=== PATIENT | female | born 1945 | race Caucasian/White ===

== ENCOUNTER → 2016-07-22 | Outpatient (CLI) | payer MEDICARE ==
[~2016-07-22] MED LIST: ASPIRIN81 M1 PO; CRESTOR10 MG PO; DETROL LA4 MG PO; JANUMET PO; OYSTER SHELL W PO; VICODIN 5/500 505 MG PO; VITAMIN D50000 I1 PO
[2016-07-22 10:56] LABS: BUN 12 mg/dl (7-24); CHOLESTEROL 133 mg/dL (<200); EST GLOM FILT AFRICAN AMERICAN > 60 ml/min; GLUCOSE 137 mg/dL (65-99); HDL CHOLESTEROL 59 mg/dl (40-60); LDL CHOLESTEROL 58 mg/dL (9-159); SGOT/AST 24 IU/L (3-35); SGPT/ALT 30 U/L (12-78); TRIGLYCERIDES 81 mg/dl (<150); VLDL CHOLESTEROL 16 mg/dL (6-40)
[2016-07-22 11:17] LABS: HEMOGLOBIN A1c 6.6 % (4.8-5.6)
== END | disposition home or self-care (01) ==
LOC: LAB 10:08
PROVIDERS: Internal Medicine Endocrinology, Diabetes & Metabolism
DX: E78.5 Hyperlipidemia, unspecified (principal); E55.9 Vitamin D deficiency, unspecified; E11.65 Type 2 diabetes mellitus with hyperglycemia

== ENCOUNTER → 2016-12-03 | Outpatient (CLI) | payer MEDICARE ==
[2016-12-03 10:50] LABS: BASO # 0.1 10*3/uL (0.0-0.1); BASO % 0.8 % (0.0-1.0); EOS # 0.1 10*3/uL (0.0-0.4); EOS % 2.4 % (1.0-4.0); HEMATOCRIT 41.8 % (37.0-47.0); HEMOGLOBIN 13.2 g/dl (12.0-16.0); LYMPH # 1.6 10*3/uL (1.3-4.4); LYMPH % 26.4 % (27.0-41.0); MEAN CELL VOLUME 90.9 fl (81.0-99.0); MEAN CORPUSCULAR HGB 28.7 pg (27.0-31.0); MEAN CORPUSCULAR HGB CONC 31.6 g/dl (33.0-37.0); MEAN PLATELET VOLUME 12.9 fl (9.6-12.3); MONO # 0.4 10*3/uL (0.1-1.0); MONO % 6.4 % (3.0-9.0); NEUT # 3.8 10*3/uL (2.3-7.9); NEUT % 63.8 % (47.0-73.0); PLATELET COUNT AUTOMATED 244 10*3/uL (130-400); RED CELL DISTRI WIDTH 13.9 % (0-14.5); WHITE BLOOD COUNT 5.9 10*3/uL (4.8-10.8)
[2016-12-03 11:02] LABS: ALKALINE PHOSPHATASE 88 U/L (45-117); BUN 12 mg/dl (7-24); CHLORIDE 103 mmol/L (98-107); CREATININE 0.69 mg/dL (0.55-1.02); POTASSIUM 4.3 mmol/L (3.5-5.1); SGOT/AST 34 IU/L (3-35); SGPT/ALT 42 U/L (12-78); SODIUM 140 mmol/L (136-145); TOTAL PROTEIN 7.8 gm/dL (6.4-8.2)
[2016-12-03 11:10] LABS: THYROID STIM HORMONE (HS) 1.7 uIU/ml (0.358-4.75)
== END | disposition home or self-care (01) ==
LOC: LAB 10:07
PROVIDERS: Internal Medicine; Internal Medicine Endocrinology, Diabetes & Metabolism
DX: E11.65 Type 2 diabetes mellitus with hyperglycemia (principal); E78.5 Hyperlipidemia, unspecified; E55.9 Vitamin D deficiency, unspecified; M85.88 Other specified disorders of bone density and structure, other site

== ENCOUNTER → 2017-04-01 | Outpatient (CLI) | payer MEDICARE ==
[2017-04-01 10:49] LABS: BUN 15 mg/dl (7-24); CHOLESTEROL 144 mg/dL (<200); CREATININE 0.69 mg/dL (0.55-1.02); SGOT/AST 17 IU/L (3-35); SGPT/ALT 28 U/L (12-78); TRIGLYCERIDES 67 mg/dl (<150); VLDL CHOLESTEROL 13 mg/dL (6-40)
[2017-04-01 10:58] LABS: HDL CHOLESTEROL 67 mg/dl (40-60); LDL CHOLESTEROL 64 mg/dL (9-159)
== END | disposition home or self-care (01) ==
LOC: LAB 09:57
PROVIDERS: Internal Medicine Endocrinology, Diabetes & Metabolism
DX: E11.65 Type 2 diabetes mellitus with hyperglycemia (principal); E78.5 Hyperlipidemia, unspecified; E55.9 Vitamin D deficiency, unspecified; E53.9 Vitamin B deficiency, unspecified

== ENCOUNTER → 2017-06-10 | Outpatient (CLI) | payer MEDICARE ==
[2017-06-10 09:11] LABS: BASO # 0.1 10*3/uL (0.0-0.1); EOS # 0.2 10*3/uL (0.0-0.4); EOS % 2.8 % (1.0-4.0); HEMOGLOBIN 12.9 g/dl (12.0-16.0); LYMPH # 2.3 10*3/uL (1.3-4.4); LYMPH % 31.9 % (27.0-41.0); MEAN CELL VOLUME 90.7 fl (81.0-99.0); MEAN CORPUSCULAR HGB 28.5 pg (27.0-31.0); MEAN CORPUSCULAR HGB CONC 31.5 g/dl (33.0-37.0); MEAN PLATELET VOLUME 12.4 fl (9.6-12.3); MONO # 0.5 10*3/uL (0.1-1.0); MONO % 7.6 % (3.0-9.0); NEUT % 56.6 % (47.0-73.0); PLATELET COUNT AUTOMATED 248 10*3/uL (130-400); RED BLOOD COUNT 4.52 10*6/uL (4.10-5.10); RED CELL DISTRI WIDTH 13.4 % (0-14.5); WHITE BLOOD COUNT 7.1 10*3/uL (4.8-10.8)
[2017-06-10 09:33] LABS: ALBUMIN 3.8 gm/dl (3.1-4.5); ALKALINE PHOSPHATASE 84 U/L (45-117); BILIRUBIN, DIRECT 0.1 mg/dL (0.0-0.2); BUN 12 mg/dl (7-24); CHLORIDE 104 mmol/L (98-107); CREATININE 0.74 mg/dL (0.55-1.02); SGOT/AST 18 IU/L (3-35); SGPT/ALT 31 U/L (12-78); SODIUM 140 mmol/L (136-145); TOTAL PROTEIN 7.2 gm/dL (6.4-8.2)
== END | disposition home or self-care (01) ==
LOC: LAB 08:23
PROVIDERS: Podiatrist Foot & Ankle Surgery
DX: B35.1 Tinea unguium (principal)

== ENCOUNTER → 2017-06-30 | Outpatient (CLI) | payer MEDICARE ==
[2017-06-30 11:31] LABS: BUN 11 mg/dl (7-24); CHOLESTEROL 153 mg/dL (<200); CREATININE 0.64 mg/dL (0.55-1.02); HDL CHOLESTEROL 60 mg/dl (40-60); LDL CHOLESTEROL 71 mg/dL (9-159); SGOT/AST 22 IU/L (3-35); SGPT/ALT 32 U/L (12-78); TRIGLYCERIDES 108 mg/dl (<150); VLDL CHOLESTEROL 22 mg/dL (6-40)
[2017-06-30 12:41] LABS: VITAMIN D, 25-HYDROXY 27.4 ng/mL (30-100)
== END | disposition home or self-care (01) ==
LOC: LAB 10:32
PROVIDERS: Internal Medicine Endocrinology, Diabetes & Metabolism
DX: E11.65 Type 2 diabetes mellitus with hyperglycemia (principal); E78.5 Hyperlipidemia, unspecified; E55.9 Vitamin D deficiency, unspecified; E53.9 Vitamin B deficiency, unspecified

== ENCOUNTER → 2017-07-24 | Outpatient (CLI) | payer MEDICARE ==
[2017-07-24 10:20] LABS: BASO # 0.1 10*3/uL (0.0-0.1); BASO % 0.9 % (0.0-1.0); EOS # 0.1 10*3/uL (0.0-0.4); EOS % 1.7 % (1.0-4.0); HEMATOCRIT 41.8 % (37.0-47.0); HEMOGLOBIN 12.9 g/dl (12.0-16.0); LYMPH # 1.3 10*3/uL (1.3-4.4); LYMPH % 18.9 % (27.0-41.0); MEAN CELL VOLUME 90.3 fl (81.0-99.0); MEAN CORPUSCULAR HGB 27.9 pg (27.0-31.0); MEAN CORPUSCULAR HGB CONC 30.9 g/dl (33.0-37.0); MEAN PLATELET VOLUME 12.6 fl (9.6-12.3); MONO # 0.4 10*3/uL (0.1-1.0); MONO % 5.9 % (3.0-9.0); NEUT % 72.3 % (47.0-73.0); PLATELET COUNT AUTOMATED 256 10*3/uL (130-400); RED BLOOD COUNT 4.63 10*6/uL (4.10-5.10); RED CELL DISTRI WIDTH 13.6 % (0-14.5)
[2017-07-24 10:42] LABS: ALKALINE PHOSPHATASE 82 U/L (45-117); BILIRUBIN, DIRECT < 0.1 mg/dL (0.0-0.2); SGOT/AST 23 IU/L (3-35); SGPT/ALT 28 U/L (12-78); TOTAL PROTEIN 7.3 gm/dL (6.4-8.2)
== END | disposition home or self-care (01) ==
LOC: LAB 09:59
PROVIDERS: Podiatrist Foot & Ankle Surgery
DX: B35.1 Tinea unguium (principal)

== ENCOUNTER → 2017-10-13 | Outpatient (CLI) | payer MEDICARE ==
[2017-10-13 11:05] LABS: BUN 14 mg/dl (7-24); CHOLESTEROL 157 mg/dL (<200); CREATININE 0.76 mg/dL (0.55-1.02); HDL CHOLESTEROL 56 mg/dl (40-60); LDL CHOLESTEROL 80 mg/dL (9-159); SGOT/AST 22 IU/L (3-35); SGPT/ALT 28 U/L (12-78); TRIGLYCERIDES 104 mg/dl (<150); VLDL CHOLESTEROL 21 mg/dL (6-40)
[2017-10-13 11:49] LABS: VITAMIN D, 25-HYDROXY 29.2 ng/mL (30-100)
== END | disposition home or self-care (01) ==
LOC: LAB 09:52
PROVIDERS: Internal Medicine Endocrinology, Diabetes & Metabolism
DX: E11.65 Type 2 diabetes mellitus with hyperglycemia (principal); E78.5 Hyperlipidemia, unspecified; E55.9 Vitamin D deficiency, unspecified; E53.9 Vitamin B deficiency, unspecified

== ENCOUNTER → 2018-01-15 | Outpatient (CLI) | payer MEDICARE ==
[2018-01-15 10:30] LABS: BUN 12 mg/dl (7-24); CHOLESTEROL 136 mg/dL (<200); CREATININE 0.75 mg/dL (0.55-1.02); HDL CHOLESTEROL 56 mg/dl (40-60); LDL CHOLESTEROL 59 mg/dL (9-159); SGOT/AST 59 IU/L (3-35); SGPT/ALT 70 U/L (12-78); TRIGLYCERIDES 107 mg/dl (<150); VLDL CHOLESTEROL 21 mg/dL (6-40)
[2018-01-15 11:01] LABS: VITAMIN D, 25-HYDROXY 62.1 ng/mL (30-100)
== END | disposition home or self-care (01) ==
LOC: LAB 09:35
PROVIDERS: Internal Medicine Endocrinology, Diabetes & Metabolism
DX: E11.65 Type 2 diabetes mellitus with hyperglycemia (principal); E78.5 Hyperlipidemia, unspecified; E55.9 Vitamin D deficiency, unspecified; E53.9 Vitamin B deficiency, unspecified

== ENCOUNTER → 2018-04-15 | Outpatient (CLI) | payer MEDICARE ==
[2018-04-15 11:17] LABS: BILIRUBIN NEGATIVE (NEGATIVE); BLOOD NEGATIVE (NEGATIVE); CLARITY CLEAR (CLEAR); COLOR YELLOW (YELLOW); GLUCOSE NEGATIVE (NEGATIVE); KETONE NEGATIVE (NEGATIVE); LEUKO ESTERASE NEGATIVE (NEGATIVE); NITRITE NEGATIVE (NEGATIVE); PH 5.5 (5.0-9.0); UROBILINOGEN 0.2 E.U./dl (0.2-1.0)
[2018-04-15 11:47] LABS: BUN 12 mg/dl (7-24); CHOLESTEROL 150 mg/dL (<200); CREATININE 0.68 mg/dL (0.55-1.02); SGOT/AST 15 IU/L (3-35); SGPT/ALT 25 U/L (12-78); TRIGLYCERIDES 116 mg/dl (<150)
[2018-04-15 11:55] LABS: HDL CHOLESTEROL 55 mg/dl (40-60)
[2018-04-16 04:11] LABS: LDL CHOLESTEROL (DIRECT) <4 mg/dL (0-99)
== END | disposition home or self-care (01) ==
LOC: LAB 10:33
PROVIDERS: Internal Medicine Endocrinology, Diabetes & Metabolism
DX: E11.65 Type 2 diabetes mellitus with hyperglycemia (principal); E55.9 Vitamin D deficiency, unspecified; E78.5 Hyperlipidemia, unspecified; E53.9 Vitamin B deficiency, unspecified

== ENCOUNTER → 2018-08-03 | Outpatient (CLI) | payer MEDICARE ==
[2018-08-03 11:36] LABS: BUN 15 mg/dl (7-24); CHOLESTEROL 144 mg/dL (<200); CREATININE 0.72 mg/dL (0.55-1.02); HDL CHOLESTEROL 53 mg/dl (40-60); SGOT/AST 15 IU/L (3-35); SGPT/ALT 21 U/L (12-78); TRIGLYCERIDES 106 mg/dl (<150)
[2018-08-03 12:05] LABS: VITAMIN D, 25-HYDROXY 39.1 ng/mL (30-100)
[2018-08-04 09:05] LABS: LDL CHOLESTEROL (DIRECT) 82 mg/dL (0-99)
== END | disposition home or self-care (01) ==
LOC: LAB 10:42
PROVIDERS: Internal Medicine Endocrinology, Diabetes & Metabolism
DX: E11.65 Type 2 diabetes mellitus with hyperglycemia (principal); E78.5 Hyperlipidemia, unspecified; E55.9 Vitamin D deficiency, unspecified; E53.9 Vitamin B deficiency, unspecified

== ENCOUNTER → 2018-09-02 | Outpatient (CLI) | payer MEDICARE | END | disposition home or self-care (01) | LOC: RAD 13:23 → MAMMO 14:00 | DX: Z12.31 Encounter for screening mammogram for malignant neoplasm of breast (principal); M85.88 Other specified disorders of bone density and structure, other site; E11.9 Type 2 diabetes mellitus without complications; Z78.0 Asymptomatic menopausal state; Z90.710 Acquired absence of both cervix and uterus ==

== ENCOUNTER → 2018-12-07 | Outpatient (CLI) | payer MEDICARE ==
[2018-12-07 10:40] LABS: BUN 16 mg/dl (7-24); CHOLESTEROL 126 mg/dL (<200); CREATININE 0.72 mg/dL (0.55-1.02); HDL CHOLESTEROL 50 mg/dl (40-60); LDL CHOLESTEROL 55 mg/dL (9-159); SGOT/AST 14 IU/L (3-35); SGPT/ALT 25 U/L (12-78); TRIGLYCERIDES 104 mg/dl (<150); VLDL CHOLESTEROL 21 mg/dL (6-40)
== END | disposition home or self-care (01) ==
LOC: LAB 09:40
PROVIDERS: Internal Medicine Endocrinology, Diabetes & Metabolism
DX: E78.5 Hyperlipidemia, unspecified (principal); E11.65 Type 2 diabetes mellitus with hyperglycemia; E55.9 Vitamin D deficiency, unspecified; E53.9 Vitamin B deficiency, unspecified

== ENCOUNTER → 2019-02-17 | Outpatient (CLI) | payer MEDICARE | END | disposition home or self-care (01) | LOC: US 13:30 | DX: N28.1 Cyst of kidney, acquired (principal) ==

== ENCOUNTER → 2019-04-05 | Outpatient (CLI) | payer MEDICARE ==
[2019-04-05 11:44] LABS: BUN 14 mg/dl (7-24); CHOLESTEROL 148 mg/dL (<200); CREATININE 0.77 mg/dL (0.55-1.02); HDL CHOLESTEROL 58 mg/dl (40-60); LDL CHOLESTEROL 68 mg/dL (9-159); SGOT/AST 16 IU/L (3-35); SGPT/ALT 26 U/L (12-78); TRIGLYCERIDES 112 mg/dl (<150); VLDL CHOLESTEROL 22 mg/dL (6-40)
== END | disposition home or self-care (01) ==
LOC: LAB 10:24
PROVIDERS: Internal Medicine Endocrinology, Diabetes & Metabolism
DX: E11.65 Type 2 diabetes mellitus with hyperglycemia (principal); E78.5 Hyperlipidemia, unspecified; E55.9 Vitamin D deficiency, unspecified; E53.9 Vitamin B deficiency, unspecified; I10 Essential (primary) hypertension

== ENCOUNTER → 2019-08-08 | Outpatient (CLI) | payer MEDICARE | END | disposition home or self-care (01) | LOC: CARD 06-20 09:30 | DX: I05.9 Rheumatic mitral valve disease, unspecified (principal); I35.8 Other nonrheumatic aortic valve disorders; R73.03 Prediabetes ==

== ENCOUNTER → 2019-09-19 | Outpatient (CLI) | payer MEDICARE ==
[2019-09-19 09:58] LABS: BUN 14 mg/dl (7-24); CHOLESTEROL 147 mg/dL (<200); CREATININE 0.77 mg/dL (0.55-1.02); SGOT/AST 15 IU/L (3-35); SGPT/ALT 30 U/L (12-78)
[2019-09-19 09:59] LABS: HDL CHOLESTEROL 51 mg/dl (40-60); LDL CHOLESTEROL 71 mg/dL (9-159); TRIGLYCERIDES 123 mg/dl (<150); VLDL CHOLESTEROL 25 mg/dL (6-40)
== END | disposition home or self-care (01) ==
LOC: LAB 08:48
PROVIDERS: Internal Medicine Endocrinology, Diabetes & Metabolism
DX: E11.65 Type 2 diabetes mellitus with hyperglycemia (principal); E78.5 Hyperlipidemia, unspecified; E55.9 Vitamin D deficiency, unspecified; E53.9 Vitamin B deficiency, unspecified; I10 Essential (primary) hypertension

== ENCOUNTER → 2019-10-26 | Outpatient (CLI) | payer MEDICARE ==
[~2019-10-26] MED LIST changes: +GLIMEPIRIDE4 M1 PO; +GLUCOPHAGE1000 MG PO; +LIPITOR10 MG PO; +LISINOPRIL5 MG PO; +OSCAL/D,OYSTER250 MG PO; +OXYBUTYNIN PO; +TRULICITY1.5 MG/0.5 SC
--- NOTE | 2019-10-26 08:15 | NUR ---
INFORMED CONSENT OBTAINED FOR EXERCISE CARDIOLITE STRESS TEST WITH DR. DE LA VEGA. RESTING EKG NSR WITH A SUPINE HR OF 85 WITH BP OF 112/60 AND HR OF 86 WITH BP OF 116/66 IN STANDING POSITION. PT COMPLETED 6:30 OF A MARY PROTOCOL WITH COMPLETION OF 30 SECONDS OF STAGE III AT 3.4 MPH AND 14% GRADE. REACHED A PEAK HR OF 153 WHICH IS 103% OF PREDICTED MAX WITH A PEAK BP OF 136/70. STRESS TEST TERMINATED BECAUSE OF FATIGUE. IN STAGE III C/O CHEST "TIGHTNESS" THAT WAS A 5 ON PAIN SCALE. AT 1:00 RECOVERY CHEST DISCOMFORT DECREASED TO A 3 ON PAIN SCALE AND DECREASED TO A 1 AT 2:00 RECOVERY. CHEST DISCOMFORT RELIEVED AT 4:[address]IC [address] CHANGES. LAST RECOVERY HR OF 92 WITH BP OF 130/60. HAS A GOOD EXERCISE TOLERANCE. AWAITING SCANNING IN STABLE CONDITION.
== END | disposition home or self-care (01) ==
LOC: CARD 00:14
DX: R07.89 Other chest pain (principal)

== ENCOUNTER → 2019-12-23 | Outpatient (CLI) | payer MEDICARE ==
[2019-12-23 10:56] LABS: BUN 14 mg/dl (7-24); CHOLESTEROL 131 mg/dL (<200); CREATININE 0.79 mg/dL (0.55-1.02); HDL CHOLESTEROL 48 mg/dl (40-60); LDL CHOLESTEROL 54 mg/dL (9-159); SGOT/AST 14 IU/L (3-35); SGPT/ALT 24 U/L (12-78); TRIGLYCERIDES 144 mg/dl (<150); VLDL CHOLESTEROL 29 mg/dL (6-40)
[2019-12-23 11:50] LABS: VITAMIN D, 25-HYDROXY 41.3 ng/mL (30-100)
== END | disposition home or self-care (01) ==
LOC: LAB 09:46
PROVIDERS: Internal Medicine Endocrinology, Diabetes & Metabolism; ATTEND Pediatrics Neurodevelopmental Disabilities
DX: E11.65 Type 2 diabetes mellitus with hyperglycemia (principal); E78.5 Hyperlipidemia, unspecified; E55.9 Vitamin D deficiency, unspecified; I10 Essential (primary) hypertension; E53.9 Vitamin B deficiency, unspecified

== ENCOUNTER → 2020-04-06 | Outpatient (CLI) | payer MEDICARE ==
[2020-04-06 11:23] LABS: BUN 17 mg/dl (7-24); CHOLESTEROL 137 mg/dL (<200); CREATININE 0.75 mg/dL (0.55-1.02); HDL CHOLESTEROL 57 mg/dl (40-60); LDL CHOLESTEROL 62 mg/dL (9-159); SGOT/AST 19 IU/L (3-35); SGPT/ALT 27 U/L (12-78); TRIGLYCERIDES 91 mg/dl (<150); VLDL CHOLESTEROL 18 mg/dL (6-40)
== END | disposition home or self-care (01) ==
LOC: LAB 10:02
PROVIDERS: ATTEND Internal Medicine Endocrinology, Diabetes & Metabolism
DX: E11.65 Type 2 diabetes mellitus with hyperglycemia (principal); I10 Essential (primary) hypertension; E78.5 Hyperlipidemia, unspecified; E55.9 Vitamin D deficiency, unspecified; E53.9 Vitamin B deficiency, unspecified

== ENCOUNTER → 2020-07-10 | Outpatient (CLI) | payer MEDICARE ==
[2020-07-10 11:08] LABS: BUN 18 mg/dl (7-24); CHOLESTEROL 139 mg/dL (<200); CREATININE 0.76 mg/dL (0.55-1.02); HDL CHOLESTEROL 58 mg/dl (40-60); LDL CHOLESTEROL 60 mg/dL (9-159); SGOT/AST 20 IU/L (3-35); SGPT/ALT 38 U/L (12-78); TRIGLYCERIDES 107 mg/dl (<150); VLDL CHOLESTEROL 21 mg/dL (6-40)
[2020-07-10 11:42] LABS: VITAMIN D, 25-HYDROXY 30.7 ng/mL (30-100)
== END | disposition home or self-care (01) ==
LOC: LAB 10:17
PROVIDERS: ATTEND Internal Medicine Endocrinology, Diabetes & Metabolism
DX: E11.65 Type 2 diabetes mellitus with hyperglycemia (principal); E78.5 Hyperlipidemia, unspecified; I10 Essential (primary) hypertension; E55.9 Vitamin D deficiency, unspecified; E56.8 Deficiency of other vitamins

== ENCOUNTER → 2020-08-03 | Outpatient (CLI) | payer MEDICARE | END | disposition home or self-care (01) | LOC: RESCLI 00:37 | PROVIDERS: ATTEND Internal Medicine | DX: I10 Essential (primary) hypertension (principal); E11.9 Type 2 diabetes mellitus without complications; E55.9 Vitamin D deficiency, unspecified; E78.2 Mixed hyperlipidemia; M85.851 Other specified disorders of bone density and structure, right thigh; N39.41 Urge incontinence; Z79.4 Long term (current) use of insulin; Z79.82 Long term (current) use of aspirin; Z98.890 Other specified postprocedural states; Z88.8 Allergy status to other drugs, medicaments and biological substances ==

== ENCOUNTER → 2020-08-08 | Outpatient (CLI) | payer MEDICARE | END | disposition home or self-care (01) | LOC: CARD 09:15 | PROVIDERS: ATTEND Internal Medicine | DX: I51.7 Cardiomegaly (principal); I25.3 Aneurysm of heart ==

== ENCOUNTER → 2020-08-15 | Outpatient (CLI) | payer MEDICARE | END | disposition home or self-care (01) | LOC: RAD 08:44 → MAMMO 09:30 | PROVIDERS: ATTEND Internal Medicine | DX: Z12.31 Encounter for screening mammogram for malignant neoplasm of breast (principal); M85.89 Other specified disorders of bone density and structure, multiple sites; Z78.0 Asymptomatic menopausal state ==

== ENCOUNTER → 2020-10-24 | Outpatient (CLI) | payer MEDICARE ==
[2020-10-24 11:05] LABS: BUN 16 mg/dl (7-24); CHOLESTEROL 140 mg/dL (<200); CREATININE 0.67 mg/dL (0.55-1.02); LDL CHOLESTEROL 70 mg/dL (9-159); SGOT/AST 16 IU/L (3-35); SGPT/ALT 28 U/L (12-78); TRIGLYCERIDES 83 mg/dl (<150)
[2020-10-24 11:17] LABS: VITAMIN D, 25-HYDROXY 39.6 ng/mL (30-100)
== END | disposition home or self-care (01) ==
LOC: LAB 10:28
PROVIDERS: ATTEND Internal Medicine Endocrinology, Diabetes & Metabolism
DX: E11.65 Type 2 diabetes mellitus with hyperglycemia (principal); E78.5 Hyperlipidemia, unspecified; E55.9 Vitamin D deficiency, unspecified; I10 Essential (primary) hypertension; E53.8 Deficiency of other specified B group vitamins

== ENCOUNTER → 2020-11-21 | Outpatient (CLI) | payer MEDICARE | END | disposition home or self-care (01) | LOC: RESCLI 00:19 | PROVIDERS: ATTEND Internal Medicine Nephrology | DX: I10 Essential (primary) hypertension (principal); E11.9 Type 2 diabetes mellitus without complications; E55.9 Vitamin D deficiency, unspecified; E78.2 Mixed hyperlipidemia; M85.851 Other specified disorders of bone density and structure, right thigh; N39.41 Urge incontinence; Z79.82 Long term (current) use of aspirin; Z79.84 Long term (current) use of oral hypoglycemic drugs; Z79.899 Other long term (current) drug therapy; Z90.710 Acquired absence of both cervix and uterus ==

== ENCOUNTER → 2021-02-22 | Outpatient (CLI) | payer MEDICARE ==
[2021-02-22 10:18] LABS: BUN 18 mg/dl (7-24); CREATININE 0.73 mg/dL (0.55-1.02); SGOT/AST 15 IU/L (3-35); SGPT/ALT 22 U/L (12-78); TRIGLYCERIDES 118 mg/dl (<150)
[2021-02-22 10:24] LABS: CHOLESTEROL 136 mg/dL (<200)
[2021-02-23 06:06] LABS: LDL CHOLESTEROL (DIRECT) 60 mg/dL (0-99)
== END | disposition home or self-care (01) ==
LOC: LAB 09:48
PROVIDERS: ATTEND Internal Medicine Endocrinology, Diabetes & Metabolism
DX: E11.65 Type 2 diabetes mellitus with hyperglycemia (principal); I10 Essential (primary) hypertension; E78.5 Hyperlipidemia, unspecified; E55.9 Vitamin D deficiency, unspecified; E53.8 Deficiency of other specified B group vitamins

== ENCOUNTER → 2021-02-27 | Outpatient (CLI) | payer MEDICARE | END | disposition home or self-care (01) | LOC: CARD 02-18 09:00 | PROVIDERS: ATTEND Internal Medicine | DX: R00.2 Palpitations (principal) ==

== ENCOUNTER → 2021-04-11 | Outpatient (CLI) | payer MEDICARE ==
[~2021-04-11] MED LIST changes: +VICTOZA 2-0.6 MG/0.1 SQ
[2021-04-11 12:54] VITALS: BP 129/42
== END | disposition home or self-care (01) ==
LOC: INJECTION 02-20 09:00
PROVIDERS: ATTEND Internal Medicine
DX: M81.0 Age-related osteoporosis without current pathological fracture (principal); E11.9 Type 2 diabetes mellitus without complications; E78.00 Pure hypercholesterolemia, unspecified; M19.90 Unspecified osteoarthritis, unspecified site

== ENCOUNTER → 2021-05-21 | Outpatient (CLI) | payer MEDICARE ==
[2021-05-21 10:24] LABS: BUN 20 mg/dl (7-24); CHOLESTEROL 139 mg/dL (<200); CREATININE 0.73 mg/dL (0.55-1.02); LDL CHOLESTEROL 73 mg/dL (9-159); SGOT/AST 8 IU/L (3-35); SGPT/ALT 18 U/L (12-78); TRIGLYCERIDES 73 mg/dl (<150)
[2021-05-21 11:12] LABS: VITAMIN D, 25-HYDROXY 35.1 ng/mL (30-100)
== END | disposition home or self-care (01) ==
LOC: LAB 09:24
PROVIDERS: ATTEND Internal Medicine Endocrinology, Diabetes & Metabolism
DX: E11.65 Type 2 diabetes mellitus with hyperglycemia (principal); I10 Essential (primary) hypertension; E53.8 Deficiency of other specified B group vitamins; E78.5 Hyperlipidemia, unspecified; E55.9 Vitamin D deficiency, unspecified

== ENCOUNTER → 2021-05-22 | Outpatient (CLI) | payer MEDICARE | END | disposition home or self-care (01) | LOC: RESCLI 00:26 | PROVIDERS: ATTEND Internal Medicine Nephrology | DX: E11.9 Type 2 diabetes mellitus without complications (principal); I10 Essential (primary) hypertension; E78.2 Mixed hyperlipidemia; Z79.899 Other long term (current) drug therapy ==

== ENCOUNTER → 2021-08-30 | Outpatient (CLI) | payer MEDICARE ==
[2021-08-30 10:32] LABS: BUN 18 mg/dl (7-24); CHOLESTEROL 139 mg/dL (<200); CREATININE 0.85 mg/dL (0.55-1.02); LDL CHOLESTEROL 65 mg/dL (9-159); SGOT/AST 10 IU/L (3-35); SGPT/ALT 13 U/L (12-78); TRIGLYCERIDES 127 mg/dl (<150)
[2021-08-30 11:25] LABS: VITAMIN D, 25-HYDROXY 48.5 ng/mL (30-100)
== END | disposition home or self-care (01) ==
LOC: LAB 09:46
PROVIDERS: ATTEND Internal Medicine Endocrinology, Diabetes & Metabolism
DX: E11.9 Type 2 diabetes mellitus without complications (principal); E78.5 Hyperlipidemia, unspecified; E55.9 Vitamin D deficiency, unspecified; I10 Essential (primary) hypertension; E53.8 Deficiency of other specified B group vitamins

== ENCOUNTER → 2021-10-09 | Outpatient (CLI) | payer MEDICARE ==
[~2021-10-09] MED LIST changes: +B COMPLEX1 EACH PO; +OXYBUTYNIN5 MG PO; +OYSTER SHELL 51 EAC5 PO; +PROLIA60 MG/M1 SC; +VITAMIN D350 MC2 PO
[2021-10-09 09:58] VITALS: BP 120/46
== END | disposition home or self-care (01) ==
LOC: INJECTION 09:50
PROVIDERS: ATTEND Internal Medicine
DX: M81.0 Age-related osteoporosis without current pathological fracture (principal); E11.9 Type 2 diabetes mellitus without complications; E78.00 Pure hypercholesterolemia, unspecified; M19.90 Unspecified osteoarthritis, unspecified site; Z88.2 Allergy status to sulfonamides; Z90.710 Acquired absence of both cervix and uterus; Z98.890 Other specified postprocedural states

== ENCOUNTER → 2021-11-27 | Outpatient (CLI) | payer MEDICARE | END | disposition home or self-care (01) | LOC: RESCLI 01:26 | PROVIDERS: ATTEND Student in an Organized Health Care Education/Training Program | DX: I10 Essential (primary) hypertension (principal); E11.9 Type 2 diabetes mellitus without complications; N39.41 Urge incontinence; E78.2 Mixed hyperlipidemia; E55.9 Vitamin D deficiency, unspecified; M85.80 Other specified disorders of bone density and structure, unspecified site; E53.8 Deficiency of other specified B group vitamins; Z79.899 Other long term (current) drug therapy; Z79.82 Long term (current) use of aspirin; Z79.01 Long term (current) use of anticoagulants; Z88.8 Allergy status to other drugs, medicaments and biological substances ==

== ENCOUNTER → 2021-12-05 | Outpatient (CLI) | payer MEDICARE ==
[2021-12-05 11:59] LABS: BUN 19 mg/dl (7-24); CHOLESTEROL 121 mg/dL (<200); SGOT/AST 12 IU/L (3-35); SGPT/ALT 17 U/L (12-78); TRIGLYCERIDES 114 mg/dl (<150)
[2021-12-05 12:09] LABS: LDL CHOLESTEROL 56 mg/dL (9-159)
== END | disposition home or self-care (01) ==
LOC: LAB 10:58
PROVIDERS: ATTEND Internal Medicine Endocrinology, Diabetes & Metabolism
DX: E11.65 Type 2 diabetes mellitus with hyperglycemia (principal); E78.5 Hyperlipidemia, unspecified; E55.9 Vitamin D deficiency, unspecified; E53.8 Deficiency of other specified B group vitamins; I10 Essential (primary) hypertension

== ENCOUNTER → 2022-03-06 | Outpatient (CLI) | payer MEDICARE ==
[2022-03-06 10:43] LABS: BUN 13 mg/dl (9-23); CHOLESTEROL 127 mg/dL (<200); CREATININE 0.73 mg/dL (0.55-1.02); LDL CHOLESTEROL 53 mg/dL (9-159); SGPT/ALT 25 U/L (10-49); THYROID STIM HORMONE (HS) 1.519 uIU/ml (0.550-4.780); TRIGLYCERIDES 138 mg/dl (<150)
== END | disposition home or self-care (01) ==
LOC: LAB 09:50
PROVIDERS: ATTEND Internal Medicine Endocrinology, Diabetes & Metabolism
DX: E11.65 Type 2 diabetes mellitus with hyperglycemia (principal); I10 Essential (primary) hypertension; E78.5 Hyperlipidemia, unspecified; E55.9 Vitamin D deficiency, unspecified; E53.8 Deficiency of other specified B group vitamins

== ENCOUNTER → 2022-05-06 | Outpatient (CLI) | payer MEDICARE | END | disposition home or self-care (01) | LOC: CARD 11:21 | PROVIDERS: ATTEND Internal Medicine | DX: Z01.818 Encounter for other preprocedural examination (principal) ==

== ENCOUNTER → 2022-06-16 | Outpatient (CLI) | payer MEDICARE | END | disposition home or self-care (01) | LOC: RESCLI 01:27 | PROVIDERS: ATTEND Internal Medicine | DX: E11.9 Type 2 diabetes mellitus without complications (principal); N39.41 Urge incontinence; E78.2 Mixed hyperlipidemia; I10 Essential (primary) hypertension; Z88.2 Allergy status to sulfonamides; Z98.890 Other specified postprocedural states; Z79.899 Other long term (current) drug therapy ==

== ENCOUNTER → 2022-07-04 | Outpatient (CLI) | payer MEDICARE ==
[2022-07-04 11:46] LABS: VITAMIN D, 25-HYDROXY 41.5 ng/mL (30-100)
[2022-07-04 12:43] LABS: BUN 17 mg/dl (9-23); CHOLESTEROL 133 mg/dL (<200); SGPT/ALT 17 U/L (10-49); TRIGLYCERIDES 82 mg/dl (<150)
== END | disposition home or self-care (01) ==
LOC: LAB 09:52
PROVIDERS: ATTEND Internal Medicine Endocrinology, Diabetes & Metabolism
DX: E11.65 Type 2 diabetes mellitus with hyperglycemia (principal); E78.5 Hyperlipidemia, unspecified; E55.9 Vitamin D deficiency, unspecified; I10 Essential (primary) hypertension

== ENCOUNTER → 2022-08-04 | Outpatient (CLI) | payer MEDICARE | END | disposition home or self-care (01) | LOC: INJECTION 10:27 | PROVIDERS: ATTEND Internal Medicine | DX: M81.0 Age-related osteoporosis without current pathological fracture (principal) ==

== ENCOUNTER 2022-09-10 08:29 | Inpatient (IN) | payer MEDICARE ==
[2022-09-10] VITALS (10 sets, daily range): BP systolic 88–130; BP diastolic 30–93
[~2022-09-10] VITALS: Ht 157.4 cm; Wt 57.6 kg
[2022-09-10 09:07] LABS: BASO # 0.1 10*3/uL (0.0-0.1); BASO % 0.4 % (0.0-1.0); EOS # 0.1 10*3/uL (0.0-0.4); EOS % 0.5 % (1.0-4.0); HEMATOCRIT 31.7 % (37.0-47.0); LYMPH # 0.9 10*3/uL (1.3-4.4); LYMPH % 7.6 % (27.0-41.0); MEAN CELL VOLUME 82.1 fl (81.0-99.0); MEAN CORPUSCULAR HGB 27.2 pg (27.0-31.0); MEAN CORPUSCULAR HGB CONC 33.1 g/dl (33.0-37.0); MEAN PLATELET VOLUME 11.9 fl (9.6-12.3); MONO % 8.3 % (3.0-9.0); NEUT % 82.6 % (47.0-73.0); PLATELET COUNT AUTOMATED 284 10*3/uL (130-400); RED BLOOD COUNT 3.86 10*6/uL (4.10-5.10); RED CELL DISTRI WIDTH 15.2 % (0-14.5); WHITE BLOOD COUNT 12.1 10*3/uL (4.8-10.8)
[2022-09-10 09:18] LABS: ACT PARTIAL THROMBO TIME 31.7 SECONDS (20.0-32.1); INTERNATIONAL NORM RATIO 1.1 (2.0-3.5)
[2022-09-10 09:34] LABS: POTASSIUM 3.6 mmol/L (3.4-5.1); TOTAL PROTEIN 6.8 gm/dL (6.0-8.0)
[2022-09-11] VITALS: BP 121/58
[2022-09-11 08:00] VITALS: BP 126/50
[2022-09-11 12:00] VITALS: BP 105/51
[2022-09-11] MEDS ORDERED: XARE20MG PO (14:42)
[2022-09-11] MEDS ORDERED: LOPRESSOR25 MG PO (14:42)
== END 2022-09-11 15:35 | disposition home or self-care (01) | DRG 310 ==
LOC: ED 08:29 → 5E 10:53 → EDHOLD 10:53 → 5E 16:53
PROVIDERS: Emergency Medicine; ADMIT Internal Medicine; ATTEND Internal Medicine
DX: I48.91 Unspecified atrial fibrillation (principal); E11.9 Type 2 diabetes mellitus without complications; R32 Unspecified urinary incontinence; D64.9 Anemia, unspecified; Z88.2 Allergy status to sulfonamides; Z79.01 Long term (current) use of anticoagulants; Z90.710 Acquired absence of both cervix and uterus

== ENCOUNTER → 2022-11-07 | Outpatient (CLI) | payer MEDICARE ==
[~2022-11-07] MED LIST changes: +LOPRESSOR25 MG PO; +XARE20MG PO
[2022-11-07 11:50] LABS: BUN 14 mg/dl (9-23); CHOLESTEROL 128 mg/dL (<200); LDL CHOLESTEROL 65 mg/dL (9-159); SGPT/ALT 19 U/L (10-49); TRIGLYCERIDES 81 mg/dl (<150)
== END | disposition home or self-care (01) ==
LOC: LAB 10:50
PROVIDERS: ATTEND Internal Medicine Endocrinology, Diabetes & Metabolism
DX: E11.65 Type 2 diabetes mellitus with hyperglycemia (principal); E78.5 Hyperlipidemia, unspecified; E55.9 Vitamin D deficiency, unspecified; I10 Essential (primary) hypertension; E53.8 Deficiency of other specified B group vitamins

== ENCOUNTER → 2023-02-23 | Outpatient (CLI) | payer MEDICARE ==
[2023-02-23 08:15] LABS: BUN 12 mg/dl (9-23); CHOLESTEROL 123 mg/dL (<200); LDL CHOLESTEROL 55 mg/dL (9-159); TRIGLYCERIDES 100 mg/dl (<150)
[2023-02-23 08:27] LABS: SGPT/ALT < 7 U/L (5-49)
== END | disposition home or self-care (01) ==
LOC: LAB 07:08
PROVIDERS: ATTEND Internal Medicine Endocrinology, Diabetes & Metabolism
DX: E11.65 Type 2 diabetes mellitus with hyperglycemia (principal); I10 Essential (primary) hypertension; E78.5 Hyperlipidemia, unspecified; E55.9 Vitamin D deficiency, unspecified; E53.8 Deficiency of other specified B group vitamins

== ENCOUNTER → 2023-06-04 | Outpatient (CLI) | payer MEDICARE ==
[2023-06-04 10:58] LABS: BUN 14 mg/dl (9-23); CHOLESTEROL 141 mg/dL (<200); LDL CHOLESTEROL 67 mg/dL (9-159); SGPT/ALT 18 U/L (5-49); TRIGLYCERIDES 66 mg/dl (<150)
[2023-06-04 10:59] LABS: VITAMIN D, 25-HYDROXY 42.2 ng/mL (30-100)
== END | disposition home or self-care (01) ==
LOC: LAB 09:55
PROVIDERS: ATTEND Internal Medicine Endocrinology, Diabetes & Metabolism
DX: I10 Essential (primary) hypertension (principal); E11.65 Type 2 diabetes mellitus with hyperglycemia; E78.5 Hyperlipidemia, unspecified; E55.9 Vitamin D deficiency, unspecified; E53.8 Deficiency of other specified B group vitamins

== ENCOUNTER → 2023-06-18 | Outpatient (CLI) | payer MEDICARE | END | disposition home or self-care (01) | LOC: RESCLI 01:46 | PROVIDERS: ATTEND Internal Medicine | DX: E11.9 Type 2 diabetes mellitus without complications (principal); N39.41 Urge incontinence; I10 Essential (primary) hypertension; E78.2 Mixed hyperlipidemia; I48.91 Unspecified atrial fibrillation; F32.9 Major depressive disorder, single episode, unspecified; Z79.899 Other long term (current) drug therapy; Z88.2 Allergy status to sulfonamides; Z79.01 Long term (current) use of anticoagulants ==

== ENCOUNTER → 2023-08-07 | Outpatient (CLI) | payer MEDICARE | END | disposition home or self-care (01) | LOC: RAD 09:00 | PROVIDERS: ATTEND Internal Medicine | DX: Z13.820 Encounter for screening for osteoporosis (principal); M85.851 Other specified disorders of bone density and structure, right thigh; Z79.899 Other long term (current) drug therapy ==

== ENCOUNTER → 2023-10-12 | Outpatient (CLI) | payer MEDICARE ==
[2023-10-12 10:48] LABS: BUN 14 mg/dl (9-23); CHOLESTEROL 162 mg/dL (<200); LDL CHOLESTEROL 83 mg/dL (9-159); SGPT/ALT 16 U/L (5-49); TRIGLYCERIDES 106 mg/dl (<150)
== END | disposition home or self-care (01) ==
LOC: LAB 10:01
PROVIDERS: ATTEND Internal Medicine Endocrinology, Diabetes & Metabolism
DX: E11.65 Type 2 diabetes mellitus with hyperglycemia (principal); E78.5 Hyperlipidemia, unspecified; E55.9 Vitamin D deficiency, unspecified; I10 Essential (primary) hypertension; E53.8 Deficiency of other specified B group vitamins

== ENCOUNTER → 2024-01-12 | Outpatient (CLI) | payer MEDICARE ==
[2024-01-12 10:51] LABS: BUN 13 mg/dl (9-23); CHOLESTEROL 145 mg/dL (<200); LDL CHOLESTEROL 72 mg/dL (9-159); SGPT/ALT 8 U/L (5-49); TRIGLYCERIDES 67 mg/dl (<150); VITAMIN D, 25-HYDROXY 52.3 ng/mL (30-100)
== END | disposition home or self-care (01) ==
LOC: LAB 09:53
PROVIDERS: ATTEND Internal Medicine Endocrinology, Diabetes & Metabolism
DX: E11.65 Type 2 diabetes mellitus with hyperglycemia (principal); E78.5 Hyperlipidemia, unspecified; E55.9 Vitamin D deficiency, unspecified; I10 Essential (primary) hypertension; E53.8 Deficiency of other specified B group vitamins

== ENCOUNTER → 2024-02-12 | Outpatient (CLI) | payer MEDICARE ==
[~2024-02-12] MED LIST changes: +Regadenoson 0.4 MG/5 ML SYR IV ONE
== END | disposition home or self-care (01) ==
LOC: CARD 01:27
PROVIDERS: ATTEND Internal Medicine
DX: R07.9 Chest pain, unspecified (principal)

== ENCOUNTER → 2024-04-06 | Outpatient (CLI) | payer MEDICARE ==
[~2024-04-06] MED LIST changes: -Regadenoson 0.4 MG/5 ML SYR IV ONE
== END | disposition home or self-care (01) ==
LOC: MAMMO 10:55
PROVIDERS: ATTEND Internal Medicine
DX: Z12.31 Encounter for screening mammogram for malignant neoplasm of breast (principal)

== ENCOUNTER → 2024-06-09 | Outpatient (CLI) | payer MEDICARE | END | disposition home or self-care (01) | LOC: RESCLI 00:25 | PROVIDERS: ATTEND Family Medicine | DX: N39.41 Urge incontinence (principal); E11.9 Type 2 diabetes mellitus without complications; I10 Essential (primary) hypertension; E78.2 Mixed hyperlipidemia; I48.91 Unspecified atrial fibrillation; F32.9 Major depressive disorder, single episode, unspecified; Z79.899 Other long term (current) drug therapy; Z88.2 Allergy status to sulfonamides; Z98.890 Other specified postprocedural states ==

== ENCOUNTER → 2024-10-24 | Outpatient (CLI) | payer MEDICARE ==
[2024-10-24 09:31] LABS: BASO # 0.1 10*3/uL (0.0-0.1); BASO % 0.7 % (0.0-1.0); EOS # 0.2 10*3/uL (0.0-0.4); EOS % 1.7 % (1.0-4.0); MEAN CELL VOLUME 89.7 fl (81.0-99.0); MEAN CORPUSCULAR HGB 27.1 pg (27.0-31.0); MEAN PLATELET VOLUME 11.9 fl (9.6-12.3); MONO # 0.6 10*3/uL (0.1-1.0); MONO % 5.5 % (3.0-9.0); NEUT # 7.9 10*3/uL (2.3-7.9); NEUT % 75.5 % (47.0-73.0); NUCLEATED RED BLOOD CELL 0.0 % (0.0-0.0); NUCLEATED RED BLOOD CELL 0.0 10*3/uL (0.0-0.0); PLATELET COUNT AUTOMATED 269 10*3/uL (130-400); RED CELL DISTRI WIDTH 14.8 % (0-14.5)
[2024-10-24 10:37] LABS: BUN 15 mg/dl (9-23); FREE T4 1.35 ng/dl (0.89-1.76); LDL CHOLESTEROL 65 mg/dL (9-159); SGPT/ALT 8 U/L (5-49)
[2024-10-24 10:44] LABS: VITAMIN D, 25-HYDROXY 44.9 ng/mL (30-100)
== END | disposition home or self-care (01) ==
LOC: LAB 09:14
PROVIDERS: ATTEND Internal Medicine
DX: I10 Essential (primary) hypertension (principal); E11.65 Type 2 diabetes mellitus with hyperglycemia; E78.2 Mixed hyperlipidemia; E53.9 Vitamin B deficiency, unspecified; E55.9 Vitamin D deficiency, unspecified; R53.83 Other fatigue

== ENCOUNTER → 2025-02-06 | Outpatient (CLI) | payer MEDICARE | END | disposition home or self-care (01) | LOC: MRI 09:44 | PROVIDERS: ATTEND Internal Medicine | DX: R41.3 Other amnesia (principal); M81.0 Age-related osteoporosis without current pathological fracture ==